=== PATIENT | female | born 1970 | race Caucasian/White ===

== ENCOUNTER 2018-08-10 13:38 | Inpatient (IN) | payer MEDICARE ==
[~2018-08-10] VITALS: Ht 167.6 cm; Wt 94.0 kg
[2018-08-10] MEDS ORDERED: LORazepam 2 MG/ML VIAL ONE (15:13)
[2018-08-10] MEDS ORDERED: DiphenhydrAMINE HCL 50 MG/ML VIAL ONE (15:14)
[2018-08-10] MEDS ORDERED: HALOPERIDOL LACTATE 5 MG/ML VIAL ONE (15:14)
[2018-08-10] MEDS ORDERED: LORazepam 2 MG/ML VIAL IM ONE (15:30)
[2018-08-10] MEDS ORDERED: HALOPERIDOL LACTATE 5 MG/ML VIAL IM ONE (15:30)
[2018-08-10] MEDS ORDERED: DiphenhydrAMINE HCL 50 MG/ML VIAL IM ONE (15:30)
[2018-08-10] MEDS ORDERED: HALOPERIDOL 5 MG TABLET PO PRN (16:15)
[2018-08-10] MEDS ORDERED: ZOLPIDEM TARTRATE 10 MG TABLET PO PRN (16:15)
[2018-08-10] MEDS ORDERED: LORazepam 2 MG TABLET PO ONE (17:30)
[2018-08-10 17:57] LABS: BASOPHILS % (AUTO) 0.7 % (0.0-2.0); EOSINOPHILS % (AUTO) 1.3 % (1.0-6.0); HEMATOCRIT 35.5 % (36-46); HEMOGLOBIN 11.7 g/dL (12.0-16.0); LYMPHOCYTES # (AUTO) 1.6 K/uL (1.0-4.8); LYMPHOCYTES % (AUTO) 23.4 % (22.0-44.0); MEAN CORPUSCULAR HEMOGLOBIN 25.6 pg (26.0-34.0); MEAN CORPUSCULAR VOLUME 77 fL (80-100); MONOCYTES # (AUTO) 0.5 K/uL (0.1-1.0); MONOCYTES % (AUTO) 7.3 % (2.0-9.0); NEUTROPHILS # (AUTO) 4.5 K/uL (1.8-7.7); NEUTROPHILS % (AUTO) 67.3 % (40.0-70.0); PLATELET COUNT (AUTO) 234 K/uL (150-450); RED BLOOD CELL COUNT(AUTO) 4.59 MIL/uL (4.00-5.20)
[2018-08-10 18:15] LABS: CHLORIDE 105 mmol/L (98-107); POTASSIUM 3.2 mmol/L (3.5-5.1); SODIUM SERUM 140 mmol/L (136-145)
[2018-08-10 18:22] LABS: HCG,QUANTITATIVE < 1 mIU/mL (0-6)
[2018-08-10 18:24] LABS: ANION GAP 10 mmol/L (8-16); CALCIUM, TOTAL 8.6 mg/dL (8.8-10.5); CARBON DIOXIDE 25 mmol/L (22-29); CREATININE 0.83 mg/dL (0.60-1.30); GLOMERULAR FILTR. RATE CALC > 60 mL/min (>60); GLUCOSE,RANDOM 92 mg/dL (70-110); UREA NITROGEN, BLOOD 11 mg/dL (7-18)
[2018-08-10 18:28] LABS: ALANINE AMINOTRANSFERASE 41 U/L (12-78); ALBUMIN 3.4 g/dL (3.4-5.0); ALKALINE PHOSPHATASE 78 U/L (46-116); ASPARTATE AMINOTRANSFERASE 29 U/L (15-37); BILIRUBIN,TOTAL 0.7 mg/dL (0.1-1.0); CHOL/HDL RATIO 3.5 (3.9-5.7); CHOLESTEROL 169 mg/dL (131-200); HDL CHOLESTEROL 48 mg/dL (40-60); LDL CHOL (CALC.) 103 mg/dL (0-130); TRIGLYCERIDES 88 mg/dL (15-150)
[2018-08-10] MEDS ORDERED: POTASSIUM CHLORIDE 20 MEQ ER TABLET PO ONE (18:45)
[2018-08-10 20:49] VITALS: BP 116/60
[2018-08-10] MEDS ORDERED: ONDANSETRON HCL 4 MG TABLET PO PRN (21:30)
[2018-08-10] MEDS ORDERED: MAG HYDROX/AL HYDROX/SIMETH ES 30 ML SUSPENSION UDCUP PO PRN (21:30)
[2018-08-10] MEDS ORDERED: CloNIDine HCL 0.1 MG TABLET PO PRN (21:30)
[2018-08-10] MEDS ORDERED: NICOTINE 14 MG/24 HOUR PATCH TD PRN (21:30)
[2018-08-10] MEDS ORDERED: LOPERAMIDE HCL 2 MG CAPSULE PO PRN (21:30)
[2018-08-10] MEDS ORDERED: MAGNESIUM HYDROXIDE SUSPENSION 30 ML UDCUP PO PRN (21:30)
[2018-08-10] MEDS ORDERED: DOCUSATE SODIUM 100 MG CAPSULE PO PRN (21:30)
[2018-08-10] MEDS ORDERED: PETROLATUM,WHITE 71 GM JELLY TP PRN (21:30)
[2018-08-10] MEDS ORDERED: ALBUTEROL SULFATE HFA 90 MCG/PUFF 8 GM INHALER IH PRN (21:30)
[2018-08-11 05:34] VITALS: BP 110/65
[2018-08-11 08:00] VITALS: BP 126/74
[2018-08-11] MEDS: LORazepam 2 MG TABLET PO PRN (09:26)
[2018-08-11] MEDS: OLANZapine 5 MG RAPDIS TABLET PO SCH ×2 (10:15→16:50)
[2018-08-11 16:04] VITALS: BP 139/65
[2018-08-12 00:25] VITALS: BP 124/75
[2018-08-12] MEDS: IBUPROFEN 400 MG TABLET PO PRN ×2 (00:48→17:12)
[2018-08-12] MEDS: GuaiFENesin/D-METHORPHAN [SUGAR-FREE] 200-20MG/10 ML SYRUP UDCUP PO PRN (00:48)
[2018-08-12] MEDS: ACETAMINOPHEN 325 MG TABLET PO PRN (03:47)
[2018-08-12] MEDS: LORazepam 2 MG TABLET PO PRN ×2 (04:40→17:12)
[2018-08-12 08:28] VITALS: BP 126/89
[2018-08-12] MEDS: OLANZapine 5 MG RAPDIS TABLET PO SCH ×2 (09:00→17:00)
[2018-08-12 16:17] VITALS: BP 119/63
[2018-08-13] VITALS: BP 138/88
[2018-08-13] MEDS: ACETAMINOPHEN 325 MG TABLET PO PRN (00:01)
[2018-08-13] MEDS: GuaiFENesin/D-METHORPHAN [SUGAR-FREE] 200-20MG/10 ML SYRUP UDCUP PO PRN (00:01)
[2018-08-13] MEDS: LORazepam 2 MG TABLET PO PRN ×3 (00:01→10:24)
[2018-08-13 05:20] VITALS: BP 124/89
[2018-08-13] MEDS: IBUPROFEN 400 MG TABLET PO PRN (05:21)
[2018-08-13 08:10] VITALS: BP 130/71
[2018-08-13 08:45] LABS: HEMOGLOBIN A1C 5.8 % (4.5-6.2)
[2018-08-13] MEDS: OLANZapine 5 MG RAPDIS TABLET PO SCH (09:00)
[2018-08-13 09:09] LABS: ALANINE AMINOTRANSFERASE 45 U/L (12-78); ALBUMIN 3.7 g/dL (3.4-5.0); ALKALINE PHOSPHATASE 74 U/L (46-116); ANION GAP 7 mmol/L (8-16); ASPARTATE AMINOTRANSFERASE 20 U/L (15-37); BILIRUBIN,TOTAL 0.4 mg/dL (0.1-1.0); CALCIUM, TOTAL 8.6 mg/dL (8.8-10.5); CARBON DIOXIDE 27 mmol/L (22-29); CHLORIDE 101 mmol/L (98-107); CHOL/HDL RATIO 3.3 (3.9-5.7); CHOLESTEROL 153 mg/dL (131-200); CREATININE 0.71 mg/dL (0.60-1.30); GLOMERULAR FILTR. RATE CALC > 60 mL/min (>60); GLUCOSE,RANDOM 104 mg/dL (70-110); HDL CHOLESTEROL 47 mg/dL (40-60); LDL CHOL (CALC.) 88 mg/dL (0-130); POTASSIUM 3.7 mmol/L (3.5-5.1); SODIUM SERUM 135 mmol/L (136-145); THYROID STIMULATING HORMONE 1.15 uIU/mL (0.36-3.74); TOTAL PROTEIN, SERUM 7.6 g/dL (6.4-8.2); TRIGLYCERIDES 91 mg/dL (15-150); UREA NITROGEN, BLOOD 11 mg/dL (7-18)
[2018-08-13] MEDS ORDERED: OLAN5TAB40 PO (10:41)
== END 2018-08-13 13:47 | disposition home or self-care (01) | DRG 885 ==
LOC: EMS 13:39 → B3A 18:31
PROVIDERS: ADMIT Psychiatry & Neurology Child & Adolescent Psychiatry; ATTEND Psychiatry & Neurology Child & Adolescent Psychiatry
DX: F31.5 Bipolar disorder, current episode depressed, severe, with psychotic features (principal); R45.851 Suicidal ideations; F17.210 Nicotine dependence, cigarettes, uncomplicated; D64.9 Anemia, unspecified; E87.6 Hypokalemia; F12.90 Cannabis use, unspecified, uncomplicated; F41.9 Anxiety disorder, unspecified; I10 Essential (primary) hypertension; J45.909 Unspecified asthma, uncomplicated; Z78.1 Physical restraint status; Z88.6 Allergy status to analgesic agent; Z88.8 Allergy status to other drugs, medicaments and biological substances; Z28.21 Immunization not carried out because of patient refusal
CPT/HCPCS: 83036; 84443; 87081; 90686; G0480; J1200; J1630; J2060